=== PATIENT | female | born 1990 | race Caucasian/White ===

== ENCOUNTER 2016-12-18 19:02 | Emergency (ER) | payer BC, OTHER ==
[2016-12-18 19:03] VITALS: BMI 24.2
--- NOTE | 2016-12-18 19:36 | ED PDOC ---
Arrival/HPI - General Chief Complaint: Abdominal Pain Time Seen by Provider: 12/18/16 19:19 Historian: Patient - History of Present Illness Narrative History of Present Illness (Text): 12/18/16 19:32 A 26 year old female with , who is 12 weeks as of ultrasound performed last week, presents to the emergency department complaining of mild left lower abdominal discomfort since today. Patient notes occasional nausea. Patient denies any fever, chills, vomiting, diarrhea, urinary symptoms, vaginal bleeding, vaginal discharge, back pain, chest pain, shortness of breath, cough, headache, dizziness or any other complaints. 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 PMD: Dr. Chery Time/Duration: Other (Today) Symptom Course: Unchanged Quality: Other Context: Home Past Medical History - Provider Review Nursing Documentation Reviewed: Yes - Infectious Disease Hx of Infectious Diseases: None - Cardiac Hx Cardiac Disorders: No - Pulmonary Hx Respiratory Disorders: No - Neurological Hx Neurological Disorder: No - HEENT Hx HEENT Disorder: No - Renal Hx Renal Disorder: Yes Hx Kidney Stones: Yes - Endocrine/Metabolic Hx Endocrine Disorders: No - Hematological/Oncological Hx Blood Disorders: No - Integumentary Hx Dermatological Disorder: No - Musculoskeletal/Rheumatological Hx Musculoskeletal Disorders: No - Gastrointestinal Hx Gastrointestinal Disorders: No - Genitourinary/Gynecological Hx Genitourinary Disorders: Yes Hx Urinary Tract Infection: Yes - Psychiatric Hx Psychophysiologic Disorder: No Hx Substance Use: No - Surgical History Hx Section: Yes - Anesthesia Hx Anesthesia: No Hx Anesthesia Reactions: No Hx Malignant Hyperthermia: No Family/Social History - Physician Review Nursing Documentation Reviewed: Yes Family/Social History: No Known Family HX Smoking Status: Never Smoked Hx Alcohol Use: Yes Hx Substance Use: No Allergies/Home Meds Allergies/Adverse Reactions: Allergies No Known Allergies Allergy (Verified 12/18/16 19:06) Home Medications: Home Meds Medication Instructions Recorded Confirmed Multivit/Folic Acid/I 1 tab PO DAILY 12/18/16 12/18/16 [] Review of Systems - Physician Review All systems were reviewed & negative as marked: Yes - Review of Systems Constitutional: absent: Fevers, Night Sweats Respiratory: absent: SOB, Cough Cardiovascular: absent: Chest Pain Gastrointestinal: Abdominal Pain (Left lower abdominal pain), Nausea. absent: Diarrhea, Vomiting Genitourinary Female: absent: Dysuria, Frequency, Hematuria, Urine Output Changes, Vaginal Bleeding, Vaginal Discharge Musculoskeletal: absent: Back Pain Neurological: absent: Headache, Dizziness Physical Exam Vital Signs Reviewed: Yes Vital Signs Temp Pulse Resp BP Pulse Ox 12/18/16 21:51 98.7 F 79 18 110/73 100 12/18/16 19:06 98.5 F 77 16 112/73 98 Temperature: Afebrile Blood Pressure: Normal Pulse: Regular Respiratory Rate: Normal Appearance: Positive for: Well-Appearing, Non-Toxic, Comfortable Pain Distress: None Mental Status: Positive for: Alert and Oriented X 3 - Systems Exam Head: Present: Atraumatic, Normocephalic Pupils: Present: PERRL Conjunctiva: Present: Normal Mouth: Present: Moist Mucous Membranes Pharnyx: Present: Normal. No: ERYTHEMA, EXUDATE Neck: Present: Normal Range of Motion Respiratory/Chest: Present: Clear to Auscultation, Good Air Exchange. No: Respiratory Distress, Accessory Muscle Use Cardiovascular: Present: Regular Rate and Rhythm, Normal S1, S2. No: Murmurs Abdomen: Present: Distention (Mild distension consistent with gestational age), Normal Bowel Sounds. No: Tenderness, Peritoneal Signs Back: Present: Normal Inspection. No: CVA Tenderness, Midline Tenderness, Paraspinal Tenderness Upper Extremity: Present: Normal Inspection. No: Cyanosis, Edema Lower Extremity: Present: Normal Inspection. No: Edema Neurological: Present: GCS=15, CN II-XII Intact, Speech Normal Skin: Present: Warm, Dry, Normal Color. No: Rashes Psychiatric: Present: Alert, Oriented x 3, Normal Insight, Normal Concentration Medical Decision Making ED Course and Treatment: 12/18/16 19:32 Impression: A 26 year old female 12 weeks with left lower abdominal pain. No tenderness on exam, mild distension consistent with gestational age. Differential Diagnosis included but are not limited to: Plan: -- Transvaginal ultrasound -- Labs -- Urinalysis -- IV fluids and Tylenol -- Reassess and disposition Prior Visits: Notes and results from previous visits were reviewed. Patient last seen in the ED on 04/05/16 for abdominal pain. Patient was discharged home and treated for a UTI. Progress Notes: 12/18/16 21:30 Reviewed sono, US First Trimester, Transabdominal: Uterus: Uterus measures approximately 9.8 x 7.1 x 6.6 cm. Gestation: There is a single intrauterine gestation. Adnexa: There are no adnexal masses. Neither ovary could be identified. Free fluid: No free fluid. IMPRESSION: Single intrauterine gestation not optimally evaluated on transabdominal images. US , Transvaginal: Gestation: There is a single intrauterine gestation. Gestational sac has mean diameter 41.9 mm. [place]-rump length measures approximately 41.9 mm. Placenta is anterior. There is a heart rate of 159 beats per minute. Ovaries: Neither ovary could be identified Free fluid: No free fluid. IMPRESSION: 11 week 1 day single living intrauterine gestation, estimated dated delivery approximately 07/08/17. - Lab Interpretations Lab Results: 12/18/16 19:40 12/18/16 19:40 Lab Results 12/18/16 21:14: Blood Type O POSITIVE, Antibody Screen Negative, BBK History Checked No verified bt 12/18/16 19:40: Beta HCG, Quant [id number] H 12/18/16 19:40: Urine Color Yellow, Urine Appearance Clear, Urine pH 6.5, Ur Specific [place] 1.025, Urine Protein Negative, Urine Glucose (UA) Negative, Urine Ketones Negative, Urine Blood Negative, Urine Nitrate Negative, Urine Bilirubin Negative, Urine Urobilinogen 1.0 H, Ur Leukocyte Esterase Negative, Urine HCG, Qual Positive 12/18/16 19:40: WBC 5.0, RBC 4.28, Hgb 12.3, Hct 35.1 L, MCV 82.0, MCH 28.7, MCHC 35.0, RDW 12.7, Plt Count 238, MPV 9.7 12/18/16 19:40: Sodium 137, Potassium 4.4, Chloride 104, Carbon Dioxide 23, Anion Gap 14, BUN 10, Creatinine 0.6, Est GFR ( Amer) > 60, Est GFR (Non- Af Amer) > 60, Random Glucose 83, Calcium 9.1, Total Bilirubin 0.4, AST 33, ALT 50, Alkaline Phosphatase 55, Total Protein 8.0, Albumin 4.0, Globulin 4.0, Albumin/Globulin Ratio 1.0 L, Lipase 103 I have reviewed the lab results: Yes - RAD Interpretation Radiology Orders: 12/18/16 19:32 OB TRANSVAGINAL [US] Stat - Medication Orders Current Medication Orders: Discontinued Medications Acetaminophen (Tylenol 325mg Tab) 650 mg PO STAT STA Stop: 12/18/16 19:33 Last Admin: 12/18/16 20:03 Dose: Sodium Chloride (Sodium Chloride 0.9%) 1,000 mls @ 100 mls/hr IV .Q10H YAMILA Last Admin: 12/18/16 19:44 Dose: 100 mls/hr - Scribe Statement The provider has reviewed the documentation as recorded by the Lisa Cheng Provider Scribe Attestation: All medical record entries made by the Scribe were at my direction and personally dictated by me. I have reviewed the chart and agree that the record accurately reflects my personal performance of the history, physical exam, medical decision making, and the department course for this patient. I have also personally directed, reviewed, and agree with the discharge instructions and disposition. Disposition/Present on Arrival - Present on Arrival Any Indicators Present on Arrival: No History of DVT/PE: No History of Uncontrolled Diabetes: No Urinary Catheter: No History of Decub. Ulcer: No History Surgical Site Infection Following: None - Disposition Have Diagnosis and Disposition been Completed?: Yes Diagnosis: Abdominal pain during Disposition: HOME/ ROUTINE Disposition Time: 23:06 Patient Plan: Discharge Condition: GOOD Discharge Instructions (ExitCare): Abdominal Pain in (ED) Additional Instructions: Follow up with your ob/die caster this week/any recurrent worsening symptoms return to the emergency room Referrals: Jailene Chery MD [Primary Care Provider] - Follow up with primary
[2016-12-18] MEDS ORDERED: Sodium Chloride 0.9% 1,000 ML IV SCH (19:45)
[2016-12-18 19:53] LABS: HEMATOCRIT 35.1 % (36.0-48.0); MEAN CORPUSCULAR HEMOGLOBIN 28.7 pg (25.0-35.0); MEAN PLATELET VOLUME 9.7 fl (7.0-11.0); RED CELL DISTRIBUTION WIDTH 12.7 % (11.5-14.5)
[2016-12-18 19:56] LABS: PH,URINE 6.5 (4.7-8.0); URINE BILIRUBIN NEGATIVE (NEGATIVE); URINE BLOOD NEGATIVE (NEGATIVE); URINE GLUCOSE (UA) NEGATIVE (NEGATIVE); URINE KETONE NEGATIVE (NEGATIVE); URINE LEUKOCYTE ESTERASE NEGATIVE Leu/uL (NEGATIVE); URINE PROTEIN NEGATIVE mg/dL (<30 mg/dL)
[2016-12-18 19:59] LABS: URINE APPEARANCE CLEAR (CLEAR); URINE COLOR YELLOW (YELLOW)
[2016-12-18 20:14] LABS: ALKALINE PHOSPHATASE 55 U/L (38-133); ALT/SGPT 50 U/L (7-56); AST/SGOT 33 U/L (15-39); BILIRUBIN,TOTAL 0.4 mg/dL (0.2-1.3); BLOOD UREA NITROGEN 10 mg/dL (7-21); CALCIUM 9.1 mg/dL (8.4-10.5); CARBON DIOXIDE 23 mmol/L (21-33); CHLORIDE 104 mmol/L (98-107); GFR AFRICAN-AMERICAN > 60; GLUCOSE,RANDOM 83 mg/dL (70-110); LIPASE 103 U/L (23-300); POTASSIUM 4.4 mmol/L (3.6-5.0); SODIUM 137 mmol/L (132-148)
--- NOTE | 2016-12-18 20:48 | US ---
EXAM: US First Trimester, Transabdominal CLINICAL HISTORY: 26 years old, female; Pain; complicated by abdominal or pelvic pain; Lower; First trimester; Gestational age or lmp: 11 weeks; TECHNIQUE: Real-time transabdominal obstetrical ultrasound of the maternal pelvis and a first trimester with image documentation. COMPARISON: There are no prior studies for comparison. FINDINGS: Uterus: Uterus measures approximately 9.8 x 7.1 x 6.6 cm. Gestation: There is a single intrauterine gestation. Adnexa: There are no adnexal masses. Neither ovary could be identified. Free fluid: No free fluid. IMPRESSION: Single intrauterine gestation not optimally evaluated on transabdominal images EXAM: US , Transvaginal CLINICAL HISTORY: 26 years old, female; Pain; complicated by abdominal or pelvic pain; Lower; First trimester; Gestational age or lmp: 11 weeks; TECHNIQUE: Real-time transvaginal obstetrical ultrasound of the maternal pelvis and a first trimester with image documentation. Transvaginal imaging was used for better evaluation of the fetus and adnexa. COMPARISON: There are no prior studies for comparison.Exam Date/Time: 12/18/2016 7:32 PM FINDINGS: Gestation: There is a single intrauterine gestation. Gestational sac has mean diameter 41.9 mm. [place]-rump length measures approximately 41.9 mm. Placenta is anterior. There is a heart rate of 159 beats per minute. Ovaries: Neither ovary could be identified Free fluid: No free fluid. IMPRESSION: 11 week 1 day single living intrauterine gestation, estimated dated delivery approximately 07/08/17
[2016-12-18 21:52] VITALS: BP 110/73; PULSE 79; RESP 18; TEMP 98.7; O2SAT 100
== END 2016-12-18 23:05 | disposition home or self-care (01) ==
LOC: ED 19:02
DX: O26.891 Other specified pregnancy related conditions, first trimester (principal); R10.30 Lower abdominal pain, unspecified; Z3A.12 12 weeks gestation of pregnancy
CPT/HCPCS: 76817; 80053; 81003; 83690; 84702; 84703; 85027; 86850; 86900; 99284; J7040